=== PATIENT | female | born 1985 | race African-American/Black ===

== ENCOUNTER 2018-01-22 13:09 | Emergency (ER) | payer OTHER, SELFPAY ==
[2018-01-22 13:48] LABS: Urine Blood NEGATIVE (NEG); Urine Glucose NEGATIVE (NEG); Urine Protein 1+ (NEG); Urine Specific Gravity 1.025 (1.005-1.030)
[2018-01-22 14:43] LABS: Absolute Lymphocytes (CBC) 1.8 K/uL (0.7-4.9); Absolute Monocytes 0.5 K/uL (0.1-1.3); Absolute Neutrophil 4.5 K/uL (1.8-8.0); Basophils % 0.5 % (0-1.3); Hematocrit 36.3 % (36.0-45.0); Lymphocytes % 25.4 % (15.3-44.8); MCH 24.3 pg (27.0-35.0); MCV 75.1 fL (80-100); MPV 8.2 fL (7.6-11.3); Monocytes % 6.9 % (3.3-12.3); RBC Red Blood Cell Count 4.84 M/uL (3.86-4.86)
[2018-01-22] MEDS ORDERED: NA CHLORIDE 0.9% 1,000 ML ONE (14:43)
[2018-01-22 14:54] LABS: Bicarbonate 24 mEq/L (21-31); Glucose Level 74 mg/dL (65-120); Potassium 3.4 mEq/L (3.6-5.0); Sodium Level 135 mEq/L (135-145)
[2018-01-22 14:55] LABS: BUN Blood Urea Nitrogen 8 mg/dL (6-20)
--- NOTE | 2018-01-22 16:05 | RAD REPORT ---
EXAM DESCRIPTION: US - OB Limited - 01/22/2018 2:39 pm CLINICAL HISTORY: , spotting [employer] system malfunction precluded earlier written report. COMPARISON: None. FINDINGS: A single gestation is identified. Heart rate normal. No gross anatomic abnormality identif iable. Heart rate reaches up to 139 BPM. Humerus length was obtained. Estimated age is 20 weeks 0 days. Cervix is 3.8 cm with closed internal os. Placenta is fundal in location. Venous lakes are seen. No abruption or marginal hematoma. Amniotic fl uid volume is normal. IMPRESSION: 1. Limited exam shows single gestation with an EGA of 20 weeks 0 days and an EVANGELIST of the 06/11/2018. 2. No gross anatomic abnormality identified. 3. Grade 0, fundal placenta with no low-lying or placenta previa. 4. Amniotic fluid volume is normal.
--- NOTE | 2018-01-22 16:31 | ER ---
Nurse's Notes [facility] Name: Yumiko Cook Age: 32 yrs Sex: Female : 1985 Arrival Date: 01/22/2018 Time: 13:14 Bed 24 Private MD: Diagnosis: Threatened Presentation: 01/22 13:23 Presenting complaint: Patient states: Spotty vaginal bleeding and lower abdominal hb cramping since this morning. Pt reports she is approx 3 months , LMP Aug 2017. Transition of care: patient was not received from another setting of care. Onset of symptoms was January 22, 2018. Initial Sepsis Screen: Does the patient meet any 2 criteria? No. Patient's initial sepsis screen is negative. Does the patient have a suspected source of infection? No. Patient's initial sepsis screen is negative. Care prior to arrival: None. 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 - Social history:: Smoking status: Patient/guardian denies using tobacco. Screenin:40 Abuse screen: Denies threats or abuse. Nutritional screening: No deficits noted. tl3 Tuberculosis screening: No symptoms or risk factors identified. Fall Risk None identified. Assessment: 13:40 General: Appears uncomfortable, well groomed, well developed, well nourished, Behavior tl3 is cooperative, appropriate for age. Pain: Complains of pain in pelvis Pain currently is 4 out of 10 on a pain scale. Neuro: Level of Consciousness is awake, alert, obeys commands, Oriented to person, place, time, situation, Appropriate for age. Cardiovascular: Heart tones S1 S2 present Capillary refill < 3 seconds in bilateral fingers. Respiratory: Airway is patent Trachea midline Respiratory effort is even, unlabored, Respiratory pattern is regular, symmetrical, Breath sounds are clear bilaterally. GI: No signs and/or symptoms were reported involving the gastrointestinal system. : brandy blood, Reports cramping, discharge, bloody. : Reports vaginal bleeding that is bright red, spotty. EENT: No signs and/or symptoms were reported regarding the EENT system. Derm: No signs and/or symptoms reported regarding the dermatologic system. Musculoskeletal: No signs and/or symptoms reported regarding the musculoskeletal system. 14:35 Reassessment: Patient appears in no apparent distress at this time. No changes from tl3 previously documented assessment. Patient and/or family updated on plan of care and expected duration. Pain level reassessed. Patient is alert, oriented x 3, equal unlabored respirations, skin warm/dry/pink. 16:13 Reassessment: Patient appears in no apparent distress at this time. No changes from tl3 previously documented assessment. Patient and/or family updated on plan of care and expected duration. Pain level reassessed. Patient is alert, oriented x 3, equal unlabored respirations, skin warm/dry/pink. pt resting, no needs at this time. Vital Signs: 13:25 BP 113 / 65; Pulse 88; Resp 16; Temp 97.8; Pulse Ox 100% on R/A; Weight 86.18 kg; hb Height 5 ft. 6 in. (167.64 cm); Pain 5/10; 14:45 BP 111 / 67; Pulse 87; Resp 16; Temp 98.7; Pulse Ox 100% ; Pain 5/10; tt1 15:56 BP 103 / 59; Pulse 81; Resp 18; Temp 98.6; Pulse Ox 100% ; Pain 3/10; tt1 17:03 BP 105 / 62; Pulse 78; Resp 18; Pulse Ox 100% ; tl3 13:25 Body Mass Index 30.67 (86.18 kg, 167.64 cm) hb ED Course: 13:14 Patient arrived in ED. mr 13:25 Triage completed. hb 13:25 Arm band placed on right wrist. hb 13:27 Shahab Armenta NP is PHCP. pm1 13:27 Layton Cuenca MD is Attending Physician. pm1 13:39 Radiology exam delayed due to lab results not completed at this time. (HCG) aa4 test not completed at this time. 13:40 Patient has correct armband on for positive identification. Placed in gown. Bed in low tl3 position. Call light in reach. Side rails up X 1. 13:40 No provider procedures requiring assistance completed. tl3 14:02 Luz Jones, RN is Primary Nurse. tl3 14:11 Ultrasound completed. Patient tolerated well. aa4 14:12 OB Limited In Process Unspecified. EDMS 14:26 Inserted saline lock: 22 gauge in right antecubital area, using aseptic technique. tt1 Blood collected. 17:01 IV discontinued, intact, bleeding controlled, No redness/swelling at site. Pressure tl3 dressing applied. 17:03 Quantitative Hcg Sent. tl3 17:03 Basic Metabolic Panel Sent. tl3 Administered Medications: 14:47 Drug: NS 0.9% 1000 ml Route: IV; Rate: 1000 ml; Site: right antecubital; tl3 15:50 Follow up: IV Status: Completed infusion; IV Intake: 1000ml tl3 Intake: 15:50 IV: 1000ml; Total: 1000ml. tl3 Outcome: 16:31 Discharge ordered by MD. pm1 17:01 Discharged to home ambulatory. tl3 17:01 Condition: stable 17:01 Discharge instructions given to patient, Instructed on discharge instructions, follow up and referral plans. Demonstrated understanding of instructions, follow-up care. 17:02 Patient left the ED. tl3 Signatures: Dispatcher [employer] EDRI LopezChapis burns mr QuintanaSisi aa4 Maryse Baeza tt1 Shahab Armenta, MANN STAFFING OPERATIONS MANAGER pm1 Lulú Alvarado, RN RN Luz Jones, RN RN tl3
--- NOTE | 2018-01-22 16:32 | EDPHYS ---
Physician Documentation [facility] Name: Yumiko Cook Age: 32 yrs Sex: Female : 1985 Arrival Date: 01/22/2018 Time: 13:14 Bed 24 Private MD: ED Physician Layton Cuenca HPI: 01/22 13:53 This 32 yrs old Black Female presents to ER via Ambulatory with complaints of Vaginal pm1 Bleeding, 16 WKS . 13:53 The patient presents with vaginal bleeding that is spotting, with no clots. Onset: The pm1 symptoms/episode began/occurred this morning. Modifying factors: The symptoms are alleviated by nothing, the symptoms are aggravated by nothing. Associated signs and symptoms: Pertinent positives: cramping, Pertinent negatives: dysuria, fever, nausea, vaginal discharge, vomiting. Severity of symptoms: in the emergency department the symptoms have improved. The patient is sexually active. The patient's method of control includes Depo-Provera 3 months ago. care at [facility]. 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 - Social history:: Smoking status: Patient/guardian denies using tobacco. ROS: 13:53 Positive for vaginal bleeding, Negative for burning with urination, vaginal pm1 discharge. 13:53 Constitutional: Negative for fever, chills, and weight loss, Eyes: Negative for injury, pain, redness, and discharge, ENT: Negative for injury, pain, and discharge, Neck: Negative for injury, pain, and swelling, Cardiovascular: Negative for chest pain, palpitations, and edema, Respiratory: Negative for shortness of breath, cough, wheezing, and pleuritic chest pain, Abdomen/GI: Negative for abdominal pain, nausea, vomiting, diarrhea, and constipation, Back: Negative for injury and pain, MS/Extremity: Negative for injury and deformity, Skin: Negative for injury, rash, and discoloration, Neuro: Negative for headache, weakness, numbness, tingling, and seizure. Exam: 13:53 Constitutional: This is a well developed, well nourished patient who is awake, alert, pm1 and in no acute distress. Head/Face: Normocephalic, atraumatic. Eyes: Pupils equal round and reactive to light, extra-ocular motions intact. Lids and lashes normal. Conjunctiva and sclera are non-icteric and not injected. Cornea within normal limits. Periorbital areas with no swelling, redness, or edema. ENT: Nares patent. No nasal discharge, no septal abnormalities noted. Tympanic membranes are normal and external auditory canals are clear. Oropharynx with no redness, swelling, or masses, exudates, or evidence of obstruction, uvula midline. Mucous membranes moist. Neck: Trachea midline, no thyromegaly or masses palpated, and no cervical lymphadenopathy. Supple, full range of motion without nuchal rigidity, or vertebral point tenderness. No Meningismus. Chest/axilla: Normal chest wall appearance and motion. Nontender with no deformity. No lesions are appreciated. Cardiovascular: Regular rate and rhythm with a normal S1 and S2. No gallops, murmurs, or rubs. Normal PMI, no JVD. No pulse deficits. Respiratory: Lungs have equal breath sounds bilaterally, clear to auscultation and percussion. No rales, rhonchi or wheezes noted. No increased work of breathing, no retractions or nasal flaring. Abdomen/GI: Soft, non-tender, with normal bowel sounds. No distension or tympany. No guarding or rebound. No evidence of tenderness throughout. Back: No spinal tenderness. No costovertebral tenderness. Full range of motion. Skin: Warm, dry with normal turgor. Normal color with no rashes, no lesions, and no evidence of cellulitis. MS/ Extremity: Pulses equal, no cyanosis. Neurovascular intact. Full, normal range of motion. 13:53 Neuro: Orientation: is normal, Motor: is normal, moves all fours, Gait: is steady, at a normal pace, without difficulty. Vital Signs: 13:25 BP 113 / 65; Pulse 88; Resp 16; Temp 97.8; Pulse Ox 100% on R/A; Weight 86.18 kg; hb Height 5 ft. 6 in. (167.64 cm); Pain 5/10; 14:45 BP 111 / 67; Pulse 87; Resp 16; Temp 98.7; Pulse Ox 100% ; Pain 5/10; tt1 15:56 BP 103 / 59; Pulse 81; Resp 18; Temp 98.6; Pulse Ox 100% ; Pain 3/10; tt1 17:03 BP 105 / 62; Pulse 78; Resp 18; Pulse Ox 100% ; tl3 13:25 Body Mass Index 30.67 (86.18 kg, 167.64 cm) hb MDM: 13:27 Patient medically screened. pm1 16:30 Data reviewed: vital signs. Data interpreted: Pulse oximetry: on room air is 100 %. pm1 Interpretation: normal. Counseling: I had a detailed discussion with the patient and/or guardian regarding: the historical points, exam findings, and any diagnostic results supporting the discharge/admit diagnosis, lab results, radiology results, the need for outpatient follow up, to return to the emergency department if symptoms worsen or persist or if there are any questions or concerns that arise at home. 01/22 13:28 Order name: Quantitative Hcg pm01/22 13:28 Order name: Abo/rh Typing; Complete Time: 15:57 pm1 01/22 13:28 Order name: Basic Metabolic Panel pm1 01/22 13:28 Order name: CBC with Diff; Complete Time: 15:57 pm1 01/22 13:29 Order name: HCG, Quantitative; Complete Time: 15:57 EDMS 01/22 13:29 Order name: Basic Metabolic Panel; Complete Time: 15:57 EDMS 01/22 13:28 Order name: Urine Test (obtain specimen); Complete Time: 14:40 pm1 01/22 13:28 Order name: IV Saline Lock; Complete Time: 14:40 pm1 01/22 13:40 Order name: Urine Dipstick--Ancillary (enter results); Complete Time: 13:52 eb 01/22 13:40 Order name: Urine --Ancillary (enter results); Complete Time: 13:52 eb 01/22 14:12 Order name: OB Limited; Complete Time: 16:29 EDMS 01/22 15:16 Order name: ABO/RH no charge; Complete Time: 15:57 EDMS 01/22 13:28 Order name: Labs collected and sent; Complete Time: 14:40 pm1 01/22 13:28 Order name: NPO; Complete Time: 14:40 pm1 01/22 13:28 Order name: Urine Dipstick-Ancillary (obtain specimen); Complete Time: 14:40 pm1 Administered Medications: 14:47 Drug: NS 0.9% 1000 ml Route: IV; Rate: 1000 ml; Site: right antecubital; tl3 15:50 Follow up: IV Status: Completed infusion; IV Intake: 1000ml tl3 Disposition: 01/23 12:47 Co-signature as Attending Physician, Layton Cuenca MD. Disposition: 01/22/18 16:31 Discharged to Home. Impression: Threatened . - Condition is Stable. - Discharge Instructions: Threatened Miscarriage, Pelvic Rest. - Medication Reconciliation Form, Thank You Letter form. - Follow up: Emergency Department; When: As needed; Reason: Worsening of condition. Follow up: Private Physician; When: 2 - 3 days; Reason: Recheck today's complaints, Continuance of care, Re-evaluation by your physician. - Problem is new. - Symptoms have improved. Signatures: Dispatcher [employer] EDMS Shahab Armenta, MANN CUSTOMS COLLECTOR pm1 Lulú Alvarado, RN RN Layton Cuenca MD MD Luz Jones RN RN tl3 Corrections: (The following items were deleted from the chart) 01/22 14:12 13:29 Transvaginal Ob+US.RAD.BRZ ordered. EDMS EDMS
== END 2018-01-22 17:02 | disposition home or self-care (01) ==
LOC: ER 13:09
DX: O20.0 Threatened abortion (principal); Z3A.16 16 weeks gestation of pregnancy; Z88.8 Allergy status to other drugs, medicaments and biological substances
CPT/HCPCS: 36415; 76815; 80048; 81003; 81025; 84702; 85025; 86900; 86901; 96360; 99284; J7030

== ENCOUNTER 2018-03-24 17:52 | Emergency (ER) | payer OTHER ==
--- NOTE | 2018-03-24 19:52 | ER ---
Nurse's Notes [facility] Name: Yumiko Cook Age: 32 yrs Sex: Female : 1985 Arrival Date: 03/24/2018 Time: 17:53 Bed External Waiting Private MD: Diagnosis: Presentation: 03/24 17:50 Presenting complaint: EMS states: Pt was in a restroom at [facility], stood up to pull sv up her pants and slipped on the wet floor. Pt reports hitting her abd on the wall, head on the door, right knee and left hip pain, and mid back hit the corner of the toilet. [id number]. Pt reports being 6 months and not feeling the baby move since the fall. Transition of care: patient was not received from another setting of care. Onset of symptoms was March 24, 2018. Risk Assessment: Do you want to hurt yourself or someone else? Patient reports no desire to harm self or others. Initial Sepsis Screen: Does the patient meet any 2 criteria? No. Patient's initial sepsis screen is negative. Does the patient have a suspected source of infection? No. Patient's initial sepsis screen is negative. Care prior to arrival: None. 17:50 Method Of Arrival: EMS: [facility] sv 17:50 Acuity: FOSTER 3 sv Triage Assessment: 17:50 General: Appears uncomfortable, Behavior is calm, cooperative, appropriate for age. sv Pain: Complains of pain in back, abdomen and right knee and left hip Pain currently is 10 out of 10 on a pain scale. EENT: No signs and/or symptoms were reported regarding the EENT system. Neuro: Level of Consciousness is awake, alert, obeys commands, Oriented to person, place, time, situation, Moves all extremities. Full function Speech is normal. Respiratory: Respiratory effort is even, unlabored, Respiratory pattern is regular, symmetrical. GI: Abdomen is round Pt reports being 6 months . Abd is soft X 4 quads. Derm: Skin is normal. Musculoskeletal: Range of motion: intact in all extremities. Historical: - Allergies: 18:09 Macrobid (Hives); sv - Home Meds: 18:09 Vitamin Oral [Active]; sv - PMHx: 18:09 None; sv - PSHx: 18:09 Hernia repair; sv - Immunization history:: Adult Immunizations up to date. - Social history:: Smoking status: unknown. - Ebola Screening: : No symptoms or risks identified at this time. Screenin:55 Abuse screen: Denies threats or abuse. Denies injuries from another. Nutritional sv screening: No deficits noted. Tuberculosis screening: No symptoms or risk factors identified. Fall Risk No fall in past 12 months (0 pts). No secondary diagnosis (0 pts). No IV (0 pts). Ambulatory Aid- None/Bed Rest/Nurse Assist (0 pts). Gait- Normal/Bed Rest/Wheelchair (0 pts) Mental Status- Oriented to own ability (0 pts). Total Kessler Fall Scale indicates No Risk (0-24 pts). Assessment: 17:55 Reassessment: Informed Dr Anderson of what the pt's complaint is and not feeling the baby sv move since the fall. 18:09 Reassessment: Pt taken to [facility] to monitor the baby. Pt reports she is most concerned sv about the baby at this time. 19:10 Reassessment: spoke with VARUN Mosquera in [facility] who states baby is moving "like crazy" and ss mother is reassured regarding baby's health. When asked if patient is coming back to ER, VARUN Mosquera states, "I don't think so, she seems fine." VARUN Milton notified that patient may not return to ER for further evaluation. Vital Signs: 17:50 BP 131 / 77; Pulse 97; Resp 20; Temp 98.6; Pulse Ox 97% ; Pain 10/10; sv Vitals: 18:01 Heart Tones: 164. dh3 ED Course: 17:53 Patient arrived in ED. sv 17:55 Patient has correct armband on for positive identification. Placed in gown. Bed in low sv position. Call light in reach. Side rails up X2. Pulse ox on. NIBP on. Door closed. Warm blanket given. Head of bed elevated. 18:00 ED physician to see patient. sv 18:00 Arm band placed on right wrist. sv 18:02 Sharla Meek RN is Primary Nurse. sv 18:08 Triage completed. sv 19:02 Primary Nurse role handed off by Sharla Meek RN sv Administered Medications: No medications were administered Outcome: 19:51 Patient left the ED. fc 19:53 Patient left the ED. fc Signatures: Sharla Meek RN RN sv Chretien, Felicia, RN RN fc Smirch, Shelby, RN RN Karen Scott [facility]
== END 2018-03-24 19:53 | disposition left against medical advice (07) ==
LOC: ER 17:52
DX: Z53.21 Procedure and treatment not carried out due to patient leaving prior to being seen by health care provider (principal)
CPT/HCPCS: 99283